=== PATIENT | female | born 2005 ===

== ENCOUNTER 2024-07-09 20:55 | Outpatient (CLI) | payer OTHER ==
[~2024-07-09] VITALS: Ht 165.1 cm; Wt 83.9 kg
[2024-07-09 20:45] VITALS: BP 123/74
[2024-07-09] MEDS ORDERED: PRENATABS RX T1 EACH PO (21:03)
[2024-07-09] MEDS ORDERED: AMPICILLIN SOD500 MG PO (21:04)
[2024-07-09] MEDS ORDERED: RINGERS SOLUTION,LACTATED 1,000 ML IV SCH (21:15)
[2024-07-09 21:35] LABS: URINE APPEARANCE Clear; URINE BILIRRUBIN Negative (NEGATIVE); URINE BLOOD Large; URINE COLOR Yellow; URINE GLUCOSE Negative (NEGATIVE); URINE KETONE Negative (NEGATIVE); URINE LEUKOCYTE Small; URINE NITRATE Negative; URINE PROTEIN Negative (NEGATIVE)
[2024-07-09 21:36] LABS: HEMATOCRIT 37.4 % (36.0-45.00); HEMOGLOBIN 12.6 g/dL (12.0-15.00); MEAN CELL VOLUME 89.9 fL (80.00-100.00); MEAN CORPUSCULAR HEMOGLOBIN 30.3 pg (27.00-32.0); MEAN CORPUSCULAR HGB CONC 33.7 g/dl (32.0-36.0); PLATELET COUNT 212 K/uL (150-450); RED BLOOD COUNT 4.16 M/uL (4.00-6.00); RED CELL DISTRIBUTION WIDTH 13.3 % (11.5-14.5)
[2024-07-09 21:39] LABS: URINE BACTERIA 57.9 uL (0.0-1933); URINE EPITHELIAL CELLS 29.6 uL (0.0-38.8); URINE RBC 2.5 uL (0.0-20.8); URINE WBC 23.9 uL (0.0-23.2)
[2024-07-09 21:55] LABS: INR < 0.93; PARTIAL THROMBOPLASTIN TIME 26.5 SECONDS (22.0-34.0); PROTHROMBIN TIME 10.2 SECONDS (9.0-11.5)
[2024-07-09 22:03] LABS: ALBUMIN 2.8 gm/dL (3.4-5.0); BILIRUBIN TOTAL 0.47 mg/dL (0.3-1.2); CALCIUM 8.9 mg/dL (8.5-10.1); CREATININE SERUM 0.58 mg/dL (0.55-1.02); GFR 131.23; GLOBULINA 3.4 G/DL (2.4-3.5); POTASSIUM 3.54 mEq/L (3.5-5.1); TOTAL PROTEIN 6.2 gm/dL (6.4-8.2)
[2024-07-09 23:13] VITALS: BP 104/65
[2024-07-10 03:43] VITALS: BP 88/57
[2024-07-10] MEDS ORDERED: AMPICILLIN 500 MG PO SCH ×2 (05:00→17:00)
[2024-07-10 06:11] VITALS: BP 97/64
[2024-07-10 08:05] VITALS: BP 97/64
[2024-07-10] MEDS ORDERED: AMPICILLIN TRIHYDRATE 500 MG CAPSULE PO SCH (17:00)
== END 2024-07-10 08:05 | disposition home or self-care (01) ==
LOC: OBS/DEL 20:55
PROVIDERS: ATTEND Specialist
DX: O26.893 Other specified pregnancy related conditions, third trimester (principal); Z3A.37 37 weeks gestation of pregnancy